=== PATIENT | female | born 1955 | race Two or more races ===

== ENCOUNTER 2016-07-21 18:41 | Emergency (ER) | payer MEDICARE, MEDICAID ==
[~2016-07-21] VITALS: Ht 157.5 cm; Wt 77.1 kg
[2016-07-21 19:48] LABS: Basophils # (auto) 0 uL; Basophils % (auto) 0.6 % (0.0-2.0); Eosinophils # (auto) 0.2 uL; Eosinophils % (auto) 3.6 % (0.0-7.0); Hematocrit 38.2 % (36.0-46.0); Hemoglobin 12.5 g/dL (12.2-16.2); Lymphocytes # (auto) 2.7 uL; Lymphocytes % (auto) 44.7 % (10.0-50.0); Mean Corpuscular Hemoglobin 27.8 pg (28.0-32.0); Mean Corpuscular Hgb Conc. 32.7 g/dL (32.0-36.0); Mean Corpuscular Volume 85.1 fL (80.0-100.0); Mean Platelet Volume 9.4 fL (7.4-10.4); Monocytes # (auto) 0.5 uL; Monocytes % (auto) 8.6 % (0.0-12.0); Neutrophils # (auto) 2.6 uL; Neutrophils % (auto) 42.5 % (37.0-80.0); Platelet Count (auto) 227 10^3/uL (140-450); Red Cell Distribution Width 13.5 % (11.6-16.0); White Blood Cell 6.1 10^3/uL (4.4-10.8)
[2016-07-21 20:05] LABS: Albumin 3.7 g/dL (3.4-5.0); BUN/Creatinine Ratio 19.2; Calcium 8.3 mg/dL (8.5-10.1); Potassium 3.7 mmol/L (3.5-5.1)
[2016-07-21 20:08] LABS: Bilirubin, Total 0.3 mg/dL (0.2-1.0); Total Protein 7.4 g/dL (6.4-8.2)
[2016-07-21 20:59] LABS: INR 0.97 (0.9-1.15); Partial Thromboplastin Time 26.4 sec (22.64-33.71)
[2016-07-21 21:05] LABS: Urine RBC None Seen /hpf (0 - 4)
[2016-07-21] MEDS ORDERED: MORPHINE SULFATE 4 MG/ML SYRG IV ONE (21:30)
[2016-07-21] MEDS ORDERED: ONDANSETRON HCL 4 MG/2 ML VIAL IV ONE (21:30)
[2016-07-21] MEDS ORDERED: NALBUPHINE HCL 10 MG/1ml INJECTION IV ONE (22:15)
[2016-07-21] MEDS ORDERED: diphenhdrAMINE HCL 50 MG/1 ML VL IV ONE (22:30)
[2016-07-21 22:43] LABS: Urine Bilirubin Negative (Negative); Urine Blood Negative /uL (Negative); Urine Color Colorless (Yellow); Urine Glucose Normal (Normal); Urine Ketone Negative (Negative); Urine Nitrite Negative (Negative); Urine Squamous Epithelial Cell FEW /hpf (<5); Urine Urobilinogen Normal (Negative)
[2016-07-21 23:37] VITALS: BP 102/51
[2016-07-22] MEDS ORDERED: LORazepam 2MG/ML-1ML VIAL IV ONE
== END 2016-07-22 00:29 | disposition left against medical advice (07) ==
LOC: ER 18:46
DX: R07.2 Precordial pain (principal); Z86.73 Personal history of transient ischemic attack (TIA), and cerebral infarction without residual deficits; Z88.5 Allergy status to narcotic agent
CPT/HCPCS: 36415; 71010; 76705; 80053; 81001; 83690; 84484; 85025; 85049; 85610; 85730; 93005; 94761; 96374; 96375; 99285; J1200; J2300; J2405

== ENCOUNTER → 2016-08-01 | Outpatient (CLI) | payer MEDICARE, MEDICAID | END | disposition home or self-care (01) | LOC: LAB 17:05 | PROVIDERS: ATTEND Obstetrics & Gynecology | DX: N76.0 Acute vaginitis (principal) ==

== ENCOUNTER 2016-09-28 18:38 | Inpatient (IN) | payer MEDICARE, MEDICAID ==
[~2016-09-28] VITALS: Ht 157.5 cm; Wt 72.6 kg
[2016-09-28 20:00] LABS: Urine Bilirubin Negative (Negative); Urine Blood TRACE /uL (Negative); Urine Color Yellow (Yellow); Urine Glucose Normal (Normal); Urine Ketone Negative (Negative); Urine Nitrite Negative (Negative); Urine RBC 11 /hpf (0 - 4); Urine Squamous Epithelial Cell FEW /hpf (<5); Urine Urobilinogen Normal (Negative); Urine pH 7.5 (5.0-8.0)
[2016-09-28 20:20] LABS: Basophils # (auto) 0 uL; Basophils % (auto) 0.3 % (0.0-2.0); Eosinophils # (auto) 0.3 uL; Eosinophils % (auto) 2.9 % (0.0-7.0); Hematocrit 40.4 % (36.0-46.0); Hemoglobin 13.6 g/dL (12.2-16.2); Lymphocytes # (auto) 2.2 uL; Lymphocytes % (auto) 22.6 % (10.0-50.0); Mean Corpuscular Hemoglobin 28.3 pg (28.0-32.0); Mean Corpuscular Hgb Conc. 33.6 g/dL (32.0-36.0); Mean Corpuscular Volume 84.3 fL (80.0-100.0); Mean Platelet Volume 9.1 fL (7.4-10.4); Monocytes # (auto) 0.5 uL; Monocytes % (auto) 5.4 % (0.0-12.0); Neutrophils # (auto) 6.6 uL; Neutrophils % (auto) 68.8 % (37.0-80.0); Platelet Count (auto) 307 10^3/uL (140-450); Red Cell Distribution Width 13.2 % (11.6-16.0); White Blood Cell 9.6 10^3/uL (4.4-10.8)
[2016-09-28 20:24] LABS: Albumin 4.1 g/dL (3.4-5.0); Alkaline Phosphatase 72 U/L (45-117); Anion Gap 9 (5-15); Aspartate Aminotransferase 16 U/L (15-37); BUN/Creatinine Ratio 15.2; Bilirubin, Total 0.4 mg/dL (0.2-1.0); Blood Urea Nitrogen 12 mg/dL (7-18); Calcium 8.4 mg/dL (8.5-10.1); Carbon Dioxide 29 mmol/L (21-32); Chloride 103 mmol/L (98-107); GFR African American 95 mL/min; GFR Non-African American 79 mL/min; Glucose 132 mg/dL (74-106); Magnesium 2.5 mg/dL (1.6-2.6); Potassium 3.9 mmol/L (3.5-5.1); Sodium 141 mmol/L (136-145); Total Protein 7.7 g/dL (6.4-8.2)
[2016-09-28] MEDS ORDERED: ONDANSETRON HCL 4 MG/2 ML VIAL IV ONE (21:15)
[2016-09-28] MEDS ORDERED: cefTRIAXone 1GM/50ML D5W 50 ML IV ONE (21:15)
[2016-09-28 21:18] LABS: INR 0.92 (0.9-1.15); Partial Thromboplastin Time 28.5 sec (22.64-33.71); Prothrombin Time 9.9 sec (9.37-12.3)
[2016-09-28] MEDS ORDERED: ONDANSETRON HCL 4 MG/2 ML VIAL IV PRN (22:00)
[2016-09-28] MEDS ORDERED: HYDROcodone-ACET 5/325MG TAB PO PRN (22:00)
[2016-09-28] MEDS ORDERED: SODIUM CHLORIDE 0.9% 1,000 ML IV SCH (22:00)
[2016-09-28 22:29] VITALS: BP 107/50
[2016-09-29] MEDS ORDERED: PANTOPRAZOLE 40 MG TAB PO SCH (10:00)
[2016-09-29] MEDS ORDERED: ASPirin 81 mg TAB PO SCH (10:00)
[2016-09-29] MEDS ORDERED: cefTRIAXone 1GM/50ML D5W 50 ML IV SCH (22:00)
[2016-09-29] MEDS ORDERED: ATORVASTATIN 20 MG TAB PO SCH (22:00)
== END 2016-09-28 22:50 | disposition left against medical advice (07) | DRG 65 ==
LOC: ER 18:38 → OVERFLOW 18:39
PROVIDERS: ADMIT Internal Medicine; ATTEND Internal Medicine
DX: I63.9 Cerebral infarction, unspecified (principal); N39.0 Urinary tract infection, site not specified; G81.91 Hemiplegia, unspecified affecting right dominant side; I10 Essential (primary) hypertension; Z86.73 Personal history of transient ischemic attack (TIA), and cerebral infarction without residual deficits; Z82.49 Family history of ischemic heart disease and other diseases of the circulatory system; Z83.3 Family history of diabetes mellitus
CPT/HCPCS: 36415; 70450; 71020; 80053; 81001; 83735; 84484; 85025; 85610; 85730; 87086; 87088; 87186; 93005; 94761; 96361; 96365; 96375; J0696; J2405

== ENCOUNTER 2017-07-27 23:34 | Emergency (ER) | payer MEDICARE, MEDICAID ==
[~2017-07-27] VITALS: Ht 152.4 cm; Wt 72.6 kg
[2017-07-28 00:59] LABS: Albumin 3.8 g/dL (3.4-5.0); BUN/Creatinine Ratio 11.7; Bilirubin, Total 0.6 mg/dL (0.2-1.0); Calcium 7.5 mg/dL (8.5-10.1); Potassium 3.5 mmol/L (3.5-5.1); Total Protein 7.1 g/dL (6.4-8.2)
[2017-07-28 01:26] LABS: Urine Bacteria NONE SEEN /hpf (None Seen); Urine Blood 1+ /uL (Negative); Urine Specific Gravity 1.006 (1.001-1.035); Urine WBC <1 /hpf (0 - 5)
[2017-07-28 01:26] LABS: Basophils # (auto) 0 uL; Basophils % (auto) 0.4 % (0.0-2.0); Eosinophils # (auto) 0 uL; Hematocrit 35.8 % (36.0-46.0); Hemoglobin 12.3 g/dL (12.2-16.2); Lymphocytes # (auto) 0.4 uL; Lymphocytes % (auto) 11.2 % (10.0-50.0); Mean Corpuscular Hgb Conc. 34.4 g/dL (32.0-36.0); Mean Corpuscular Volume 84.1 fL (80.0-100.0); Monocytes # (auto) 0.4 uL; Monocytes % (auto) 10.7 % (0.0-12.0); Neutrophils # (auto) 2.9 uL; Neutrophils % (auto) 76.7 % (37.0-80.0); Nucleated Red Blood Cells % 0.1 %; Platelet Count (auto) 169 10^3/uL (140-450); Red Blood Cells 4.26 10^6/uL (4.0-5.20); Red Cell Distribution Width 13.4 % (11.8-14.3); White Blood Cell 3.8 10^3/uL (4.4-10.8)
[2017-07-28 04:45] LABS: Urine Bacteria FEW /hpf (None Seen); Urine Blood 2+ /uL (Negative); Urine Specific Gravity 1.008 (1.001-1.035); Urine WBC 3 /hpf (0 - 5)
[2017-07-28] MEDS ORDERED: ONDANSETRON HCL 4 MG/2 ML VIAL IV ONE (06:00)
[2017-07-28] MEDS ORDERED: NALBUPHINE HCL 10 MG/1ml INJECTION IV ONE (06:00)
[2017-07-28] MEDS ORDERED: ACETAMINOPHEN 325 MG TAB PO ONE (06:15)
[2017-07-28 06:30] VITALS: BP 130/75
== END 2017-07-28 06:40 | disposition left against medical advice (07) ==
LOC: ER 23:44
DX: K85.90 Acute pancreatitis without necrosis or infection, unspecified (principal); K57.90 Diverticulosis of intestine, part unspecified, without perforation or abscess without bleeding; E87.1 Hypo-osmolality and hyponatremia; I10 Essential (primary) hypertension; Z86.73 Personal history of transient ischemic attack (TIA), and cerebral infarction without residual deficits; Z83.3 Family history of diabetes mellitus; Z82.49 Family history of ischemic heart disease and other diseases of the circulatory system
CPT/HCPCS: 36415; 74176; 80053; 81001; 82150; 83690; 85025; 99285; J7030; J2405

== ENCOUNTER 2017-09-13 13:52 | Emergency (ER) | payer MEDICARE, MEDICAID ==
[~2017-09-13] VITALS: Ht 154.9 cm; Wt 68.0 kg
[2017-09-13 14:04] VITALS: BP 119/62
== END 2017-09-13 16:30 | disposition home or self-care (01) ==
LOC: ER 13:52
DX: S01.112A Laceration without foreign body of left eyelid and periocular area, initial encounter (principal); I10 Essential (primary) hypertension; Z86.73 Personal history of transient ischemic attack (TIA), and cerebral infarction without residual deficits; Z88.6 Allergy status to analgesic agent; W22.8XXA Striking against or struck by other objects, initial encounter; Y93.K9 Activity, other involving animal care; Y92.89 Other specified places as the place of occurrence of the external cause; Y99.8 Other external cause status
CPT/HCPCS: 12011

== ENCOUNTER 2020-02-05 17:21 | Emergency (ER) | payer MEDICARE, MEDICAID ==
[~2020-02-05] VITALS: Ht 157.5 cm; Wt 63.5 kg
[2020-02-05 17:48] VITALS: BP 128/62
== END 2020-02-05 19:50 | disposition home or self-care (01) ==
LOC: ER 17:21
DX: S90.455A Superficial foreign body, left lesser toe(s), initial encounter (principal); W45.8XXA Other foreign body or object entering through skin, initial encounter; Y93.89 Activity, other specified; Y92.89 Other specified places as the place of occurrence of the external cause; Y99.8 Other external cause status

== ENCOUNTER 2022-02-16 11:02 | Emergency (ER) | payer MEDICARE, MEDICAID | END 2022-02-16 11:50 | disposition left against medical advice (07) | LOC: ER 11:06 | DX: T14.90XA Injury, unspecified, initial encounter (principal); Z53.21 Procedure and treatment not carried out due to patient leaving prior to being seen by health care provider; W18.39XA Other fall on same level, initial encounter; Y93.89 Activity, other specified; Y92.89 Other specified places as the place of occurrence of the external cause; Y99.8 Other external cause status ==

== ENCOUNTER 2022-02-16 14:09 | Emergency (ER) | payer MEDICARE, MEDICAID ==
[~2022-02-16] VITALS: Ht 154.9 cm; Wt 73.0 kg
[2022-02-16 15:42] LABS: Basophils # (auto) 0 10 ^3/uL (0-0.2); Basophils % (auto) 0.4 % (0.0-2.0); Eosinophils # (auto) 0.1 10 ^3/uL (0-0.8); Eosinophils % (auto) 1.5 % (0.0-7.0); Hematocrit 42.1 % (36.0-46.0); Hemoglobin 13.7 g/dL (12.2-16.2); Lymphocytes # (auto) 1.7 10 ^3/uL (0.4-5.4); Lymphocytes % (auto) 22.6 % (10.0-50.0); Mean Corpuscular Hemoglobin 27.4 pg (28.0-32.0); Mean Corpuscular Hgb Conc. 32.6 g/dL (32.0-36.0); Mean Corpuscular Volume 84.3 fL (80.0-100.0); Monocytes # (auto) 0.5 10 ^3/uL (0-1.3); Monocytes % (auto) 7.2 % (0.0-12.0); Neutrophils # (auto) 5.1 10 ^3/uL (1.6-8.6); Neutrophils % (auto) 68.3 % (37.0-80.0); Red Cell Distribution Width 13.6 % (11.8-14.3); White Blood Cell 7.5 10^3/uL (4.4-10.8)
[2022-02-16 15:59] LABS: Albumin 3.9 g/dL (3.4-5.0); Calcium 8.7 mg/dL (8.5-10.1); Potassium 3.9 mmol/L (3.5-5.1)
[2022-02-16 16:02] LABS: BUN/Creatinine Ratio 23.8; Bilirubin, Total 0.3 mg/dL (0.2-1.0); Total Protein 7.4 g/dL (6.4-8.2)
[2022-02-16] MEDS ORDERED: KETOROLAC TROMETH 60MG/2ML VIAL IM ONE (22:15)
[2022-02-16 22:18] LABS: Urine Bacteria NONE SEEN /hpf (None Seen); Urine Blood TRACE /uL (Negative); Urine Specific Gravity 1.008 (1.001-1.035); Urine WBC 1 /hpf (0 - 5)
[2022-02-16 22:48] VITALS: BP 115/53
== END 2022-02-16 23:38 | disposition home or self-care (01) ==
LOC: ER 14:09
DX: M79.10 Myalgia, unspecified site (principal); M25.551 Pain in right hip; M25.522 Pain in left elbow; R51.9 Headache, unspecified; R07.89 Other chest pain; I10 Essential (primary) hypertension; Z86.73 Personal history of transient ischemic attack (TIA), and cerebral infarction without residual deficits; Z88.5 Allergy status to narcotic agent; W01.0XXA Fall on same level from slipping, tripping and stumbling without subsequent striking against object, initial encounter; Y93.89 Activity, other specified; Y92.89 Other specified places as the place of occurrence of the external cause; Y99.8 Other external cause status
CPT/HCPCS: 36415; 71045; 73080; 73502; 73700; 80053; 81001; 84484; 85025; 96372; 99285; J1885

== ENCOUNTER 2022-11-28 17:44 | Inpatient (IN) | payer MEDICARE, MEDICAID ==
[~2022-11-28] VITALS: Ht 154.9 cm; Wt 75.4 kg
[2022-11-28] MEDS ORDERED: SODIUM CHLORIDE 0.9% 500 ML IVB ONE (18:30)
[2022-11-28] MEDS ORDERED: MORPHINE SULFATE 4 MG/ML SYR/VIAL IV ONE (18:30)
[2022-11-28] MEDS ORDERED: PANTOPRAZOLE 40 MG/10 ML VIAL INJ IV ONE (18:30)
[2022-11-28] MEDS ORDERED: ONDANSETRON HCL 4 MG/2 ML VIAL IV ONE (18:30)
[2022-11-28 18:45] LABS: Basophils # (auto) 0 10 ^3/uL (0-0.2); Basophils % (auto) 0.3 % (0.0-2.0); Eosinophils # (auto) 0.1 10 ^3/uL (0-0.8); Eosinophils % (auto) 1.5 % (0.0-7.0); Hematocrit 44.5 % (36.0-46.0); Hemoglobin 15.2 g/dL (12.2-16.2); Lymphocytes # (auto) 1.2 10 ^3/uL (0.4-5.4); Mean Corpuscular Hemoglobin 29.3 pg (28.0-32.0); Mean Corpuscular Hgb Conc. 34.2 g/dL (32.0-36.0); Mean Corpuscular Volume 85.9 fL (80.0-100.0); Monocytes # (auto) 0.4 10 ^3/uL (0-1.3); Monocytes % (auto) 4.6 % (0.0-12.0); Neutrophils # (auto) 6.7 10 ^3/uL (1.6-8.6); Neutrophils % (auto) 79.6 % (37.0-80.0); Nucleated Red Blood Cells % 0.1 %; Red Blood Cells 5.18 10^6/uL (4.0-5.20); Red Cell Distribution Width 13.9 % (11.8-14.3); White Blood Cell 8.4 10^3/uL (4.4-10.8)
[2022-11-28] MEDS ORDERED: HYDROmorphone HCL 2 MG/ML VL/or syr IV ONE (19:00)
[2022-11-28 19:10] LABS: Albumin 4.2 g/dL (3.4-5.0); Calcium 8.4 mg/dL (8.5-10.1); Magnesium 2.5 mg/dL (1.6-2.6); Potassium 4.3 mmol/L (3.5-5.1)
[2022-11-28 19:13] LABS: BUN/Creatinine Ratio 14.8 (10.0-20.0); Bilirubin, Total 0.6 mg/dL (0.2-1.0); Total Protein 8.1 g/dL (6.4-8.2)
[2022-11-28] MEDS ORDERED: HYDROcodone-ACET 10/325MG TAB PO ONE (21:30)
[2022-11-28 21:43] LABS: Urine Bacteria NONE SEEN /hpf (None Seen); Urine Blood 1+ /uL (Negative); Urine Mucus FEW (None Seen); Urine WBC 8 /hpf (0 - 5)
[2022-11-28] MEDS ORDERED: ACETAMINOPHEN 325 MG TAB PO PRN (22:45)
[2022-11-28] MEDS ORDERED: HYDROmorphone HCL 2 MG/ML VL/or syr IV PRN (22:45)
[2022-11-28] MEDS ORDERED: DOCUSATE SOD 100 MG CAP PO PRN (22:45)
[2022-11-28] MEDS ORDERED: ONDANSETRON HCL 4 MG/2 ML VIAL IV PRN (22:45)
[2022-11-28] MEDS ORDERED: cefTRIAXone 1GM/50ML D5W 50 ML IV ONE (22:45)
[2022-11-28] MEDS ORDERED: HYDROcodone-ACET 5/325MG TAB PO PRN (22:45)
[2022-11-28] MEDS: SODIUM CHLORIDE 0.9% 1,000 ML IV SCH (23:13)
[2022-11-28] MEDS ORDERED: NITROGLYCERIN 0.4 MG SL TAB SL PRN (23:45)
[2022-11-28] MEDS ORDERED: MORPHINE SULFATE INJ 2 MG/ml SYRG IV PRN (23:45)
[2022-11-29 02:09] VITALS: BP 106/40
[2022-11-29 05:00] VITALS: BP 95/46
[2022-11-29 06:38] LABS: Albumin 3.4 g/dL (3.4-5.0); Calcium 7.6 mg/dL (8.5-10.1); Potassium 3.7 mmol/L (3.5-5.1)
[2022-11-29 06:44] LABS: Bilirubin, Total 0.6 mg/dL (0.2-1.0); Total Protein 6.1 g/dL (6.4-8.2)
[2022-11-29 06:49] LABS: Basophils # (auto) 0 10 ^3/uL (0-0.2); Basophils % (auto) 0.2 % (0.0-2.0); Eosinophils # (auto) 0.1 10 ^3/uL (0-0.8); Eosinophils % (auto) 1.6 % (0.0-7.0); Hematocrit 38.2 % (36.0-46.0); Lymphocytes # (auto) 0.7 10 ^3/uL (0.4-5.4); Lymphocytes % (auto) 18.2 % (10.0-50.0); Mean Corpuscular Volume 85.5 fL (80.0-100.0); Monocytes # (auto) 0.3 10 ^3/uL (0-1.3); Monocytes % (auto) 6.9 % (0.0-12.0); Neutrophils % (auto) 73.1 % (37.0-80.0); Nucleated Red Blood Cells % 0.1 %; Red Blood Cells 4.47 10^6/uL (4.0-5.20); Red Cell Distribution Width 13.6 % (11.8-14.3); White Blood Cell 4.1 10^3/uL (4.4-10.8)
[2022-11-29 08:00] VITALS: BP 113/57
[2022-11-29] MEDS: cefTRIAXone 1GM/50ML D5W 50 ML IV SCH (09:05)
[2022-11-29] MEDS: FAMOTIDINE (10MG/ML) 2ML VL IV SCH ×2 (09:05→21:09)
[2022-11-29] MEDS ORDERED: ASPirin 81 mg TAB PO SCH (10:00)
[2022-11-29 12:00] VITALS: BP 109/47
[2022-11-29] MEDS: SODIUM CHLORIDE 0.9% 1,000 ML IV SCH (15:25)
[2022-11-29 16:00] VITALS: BP 118/45
[2022-11-29 22:00] VITALS: BP 117/60
[2022-11-30 05:00] VITALS: BP 109/52
[2022-11-30 06:04] LABS: Albumin 3.4 g/dL (3.4-5.0); Calcium 7.8 mg/dL (8.5-10.1); Potassium 3.4 mmol/L (3.5-5.1)
[2022-11-30 06:09] LABS: BUN/Creatinine Ratio 13.2 (10.0-20.0); Bilirubin, Total 0.4 mg/dL (0.2-1.0); Total Protein 6.1 g/dL (6.4-8.2)
[2022-11-30 06:51] LABS: Basophils # (auto) 0 10 ^3/uL (0-0.2); Basophils % (auto) 0.4 % (0.0-2.0); Eosinophils # (auto) 0 10 ^3/uL (0-0.8); Eosinophils % (auto) 1.3 % (0.0-7.0); Hematocrit 38.8 % (36.0-46.0); Hemoglobin 13.3 g/dL (12.2-16.2); Lymphocytes % (auto) 32.6 % (10.0-50.0); Mean Corpuscular Hemoglobin 29.1 pg (28.0-32.0); Mean Corpuscular Hgb Conc. 34.4 g/dL (32.0-36.0); Mean Corpuscular Volume 84.6 fL (80.0-100.0); Monocytes # (auto) 0.4 10 ^3/uL (0-1.3); Monocytes % (auto) 13.4 % (0.0-12.0); Neutrophils # (auto) 1.6 10 ^3/uL (1.6-8.6); Neutrophils % (auto) 52.3 % (37.0-80.0); Nucleated Red Blood Cells % 0.3 %; Red Blood Cells 4.58 10^6/uL (4.0-5.20); Red Cell Distribution Width 13.7 % (11.8-14.3); White Blood Cell 3.1 10^3/uL (4.4-10.8)
[2022-11-30] MEDS: SODIUM CHLORIDE 0.9% 1,000 ML IV SCH (08:05)
[2022-11-30 09:00] VITALS: BP 113/46
[2022-11-30] MEDS: cefTRIAXone 1GM/50ML D5W 50 ML IV SCH (09:20)
[2022-11-30] MEDS: FAMOTIDINE (10MG/ML) 2ML VL IV SCH (09:21)
[2022-11-30 13:00] VITALS: BP 113/72
[2022-11-30] MEDS ORDERED: CIPR250T3 PO (16:46)
[2022-11-30] MEDS ORDERED: FAMO20TA10 PO (16:46)
[2022-11-30 16:59] VITALS: BP 115/47
== END 2022-11-30 18:22 | disposition home or self-care (01) | DRG 392 ==
LOC: ER 17:44 → OVERFLOW 23:41 → WEST WING 11-29 00:58
PROVIDERS: ADMIT Nurse Practitioner Family; ATTEND Internal Medicine
DX: K52.9 Noninfective gastroenteritis and colitis, unspecified (principal); N39.0 Urinary tract infection, site not specified; K82.8 Other specified diseases of gallbladder; I10 Essential (primary) hypertension; K76.89 Other specified diseases of liver; K57.90 Diverticulosis of intestine, part unspecified, without perforation or abscess without bleeding; K76.0 Fatty (change of) liver, not elsewhere classified; E66.9 Obesity, unspecified; Z68.31 Body mass index [BMI] 31.0-31.9, adult; Z86.73 Personal history of transient ischemic attack (TIA), and cerebral infarction without residual deficits
CPT/HCPCS: 36415; 74176; 76705; 78226; 80053; 81001; 83690; 83735; 85025; 87045; 87086; 87427; 87493; 93005; 96361; 96365; 96375; C9113; G0378; J0696; J2405; J3490